=== PATIENT | male | born 1970 | race Caucasian/White ===

== ENCOUNTER 2018-11-26 11:45 | Day surgery (SDC) | payer OTHER ==
[2018-11-26] MEDS ORDERED: LIDOCAINE 100 MG SYRINGE (13:16)
[2018-11-26] MEDS ORDERED: PROPOFOL 20 ML (13:16)
== END 2018-11-26 16:33 | disposition home or self-care (01) ==
LOC: GIL 11:45
DX: K64.8 Other hemorrhoids (principal); K51.90 Ulcerative colitis, unspecified, without complications
CPT/HCPCS: 45380; 88305